=== PATIENT | female | born 1965 | race Caucasian/White ===

== ENCOUNTER 2020-02-14 17:30 | Emergency (ER) | payer SELFPAY ==
[~2020-02-14] VITALS: Ht 162.6 cm; Wt 60.0 kg
--- NOTE | 2020-02-14 18:02 | PHYS DOC ---
Past Medical History Past Medical History: Asthma, COPD Additional Past Medical Histor: emphysema Past Surgical History: Smoking Status: Current Every Day Smoker Alcohol Use: None Adult General Chief Complaint Chief Complaint: SHORTNESS OF BREATH HPI HPI 54 yo female with history of COPD/Emphysema presents to the ER with complaints of SOB. Patient was seen and tested by her PCP 2 weeks ago with a negative test however continues to have similar symptoms. Patient has SOB/cough, no chest pain, nausea or vomiting. Patient states nothing makes symptoms worse, nothing makes symptoms better. She is afebrile at this time. Saturations currently 98% on RA Review of Systems Review of Systems Constitutional: Denies fever or chills [] Respiratory: + cough/SOB Cardiovascular: No additional information not addressed in HPI [] GI: Denies abdominal pain, nausea, vomiting, bloody stools or diarrhea [] Integument: Denies rash or skin lesions [] Neurologic: Denies headache, focal weakness or sensory changes [] All other systems were reviewed and found to be within normal limits, except as documented in this note. Physical Exam Physical Exam Constitutional: Well developed, well nourished, no acute distress, non-toxic appearance. [] Cardiovascular:Heart rate regular rhythm, no murmur [] Lungs & Thorax: Bilateral breath sounds clear to auscultation [] Abdomen: Bowel sounds normal, soft, no tenderness, no masses, no pulsatile masses. [] Skin: Warm, dry, no erythema, no rash. [] Extremities: No tenderness, no edema. [] Neurologic: Alert and oriented X 3, no focal deficits noted. [] Psychologic: Affect normal, judgement normal, mood normal. [] Current Patient Data Vital Signs Vital Signs Date Time Temp Pulse Resp B/P (MAP) Pulse Ox O2 Delivery O2 Flow Rate FiO2 02/14/20 17:47 98.3 85 20 117/66 (83) 98 Room Air 98.3 Lab Values Laboratory Tests Test 02/14/20 18:00 02/14/20 18:10 White Blood Count 6.1 x10^3/uL (4.0-11.0) Red Blood Count 3.74 x10^6/uL (3.50-5.40) Hemoglobin 12.4 g/dL (12.0-15.5) Hematocrit 36.7 % (36.0-47.0) Mean Corpuscular Volume 98 fL (79-100) Mean Corpuscular Hemoglobin 33 pg (25-35) Mean Corpuscular Hemoglobin Concent 34 g/dL (31-37) Red Cell Distribution Width 14.8 % (11.5-14.5) H Platelet Count 283 x10^3/uL (140-400) Neutrophils (%) (Auto) 63 % (31-73) Lymphocytes (%) (Auto) 27 % (24-48) Monocytes (%) (Auto) 8 % (0-9) Eosinophils (%) (Auto) 1 % (0-3) Basophils (%) (Auto) 1 % (0-3) Neutrophils # (Auto) 3.8 x10^3/uL (1.8-7.7) Lymphocytes # (Auto) 1.6 x10^3/uL (1.0-4.8) Monocytes # (Auto) 0.5 x10^3/uL (0.0-1.1) Eosinophils # (Auto) 0.1 x10^3/uL (0.0-0.7) Basophils # (Auto) 0.0 x10^3/uL (0.0-0.2) Sodium Level 137 mmol/L (136-145) Potassium Level 4.3 mmol/L (3.5-5.1) Chloride Level 102 mmol/L (98-107) Carbon Dioxide Level 29 mmol/L (21-32) Anion Gap 6 (6-14) Blood Urea Nitrogen 16 mg/dL (7-20) Creatinine 0.8 mg/dL (0.6-1.0) Estimated GFR (Cockcroft-Gault) 74.7 BUN/Creatinine Ratio 20 (6-20) Glucose Level 85 mg/dL (70-99) Lactic Acid Level 0.6 mmol/L (0.4-2.0) Calcium Level 8.1 mg/dL (8.5-10.1) L Total Bilirubin 0.2 mg/dL (0.2-1.0) Aspartate Amino Transferase (AST) 11 U/L (15-37) L Alanine Aminotransferase (ALT) 19 U/L (14-59) Alkaline Phosphatase 50 U/L (46-116) IA-Nwf-X-Type Natriuretic Peptide 171 pg/mL (0-124) H Total Protein 6.2 g/dL (6.4-8.2) L Albumin 3.5 g/dL (3.4-5.0) Albumin/Globulin Ratio 1.3 (1.0-1.7) Influenza Type A Antigen Negative (NEGATIVE) Influenza Type B Antigen Negative (NEGATIVE) Laboratory Tests 02/14/20 18:00 Laboratory Tests 02/14/20 18:00 EKG EKG [] Radiology/Procedures Radiology/Procedures [facility] [address] [place] [address] IMAGING REPORT Signed PATIENT: ZENOBIA LEAVITT ACCOUNT: [id number] : 1965 LOCATION: ER AGE: 54 SEX: F EXAM STATUS: REG ER ORD. PHYSICIAN: JULIANNE ODELL DO REASON: SOB PROCEDURE: CHEST AP ONLY Single view chest dated 02/14/2020: No comparison available. Clinical Indication: Shortness of breath. Findings: Single upright portable exam of the chest was performed. Heart size and mediastinal contours are within normal limits given technique. The lungs are clear without evidence of focal consolidation. Vascular interstitium is within normal limits. No pleural effusion or pneumothorax. Impression:: No acute radiographic abnormality. Electronically signed by: Jaun Camejo MD (02/14/2020 6:42 PM) [id number] DICTATED and SIGNED BY: JAUN CAMEJO MD DATE: 02/14/20 1842 [] Course & Med Decision Making Course & Med Decision Making Pertinent Labs and Imaging studies reviewed. (See chart for details) []54 yo female with history of COPD/Emphysema presents to the ER with complaints of SOB. Patient was seen and tested by her PCP 2 weeks ago with a negative test however continues to have similar symptoms. Patient has SOB/cough, no chest pain, nausea or vomiting. Patient states nothing makes symptoms worse, nothing makes symptoms better. She is afebrile at this time. Laboratory studies and imaging reviewed No evidence of acute process identified No evidence of sepsis appreciated Recommend discharge home and follow-up with primary care physician Reji Disclaimer Reji Disclaimer This electronic medical record was generated, in whole or in part, using a voice recognition dictation system. Departure Departure Impression: Primary Impression: Dyspnea Disposition: 01 HOME, SELF-CARE Condition: STABLE Referrals: NO PCP (PCP) Patient Instructions: Shortness of Breath, [id number] Additional Instructions: Recommend follow up with PCP as scheduled No acute findings on CXR Labs normal, no evidence of sepsis appreciated Tylenol as needed for fever Problem Qualifiers Primary Impression: Dyspnea Dyspnea type: unspecified Qualified Codes: R06.00 - Dyspnea, unspecified MERLIN SWANN MD Feb 14, 2020 18:02
[2020-02-14 18:23] LABS: BASO % 1 % (0-3); EOS # 0.1 x10^3/uL (0.0-0.7); EOS % 1 % (0-3); HEMATOCRIT 36.7 % (36.0-47.0); HEMOGLOBIN 12.4 g/dL (12.0-15.5); LYMPH # 1.6 x10^3/uL (1.0-4.8); LYMPH % 27 % (24-48); MEAN CORPUSCULAR HEMOGLOBIN 33 pg (25-35); MEAN CORPUSCULAR HGB CONC 34 g/dL (31-37); MEAN CORPUSCULAR VOLUME 98 fL (79-100); MONO # 0.5 x10^3/uL (0.0-1.1); MONO % 8 % (0-9); NEUT # 3.8 x10^3/uL (1.8-7.7); NEUT % 63 % (31-73); PLATELET COUNT 283 x10^3/uL (140-400); RED BLOOD COUNT 3.74 x10^6/uL (3.50-5.40); RED CELL DISTRIBUTION WIDTH 14.8 % (11.5-14.5); WHITE BLOOD COUNT 6.1 x10^3/uL (4.0-11.0)
[2020-02-14 18:34] LABS: CALCIUM 8.1 mg/dL (8.5-10.1); CREATININE 0.8 mg/dL (0.6-1.0); GFR 74.7; POTASSIUM 4.3 mmol/L (3.5-5.1)
[2020-02-14 18:40] LABS: ALBUMIN 3.5 g/dL (3.4-5.0); ALBUMIN/GLOBULIN RATIO 1.3 (1.0-1.7); TOTAL BILIRUBIN 0.2 mg/dL (0.2-1.0); TOTAL PROTEIN 6.2 g/dL (6.4-8.2)
[2020-02-14 18:43] LABS: INFLUENZA A PATIENT NEGATIVE (NEGATIVE); INFLUENZA B PATIENT NEGATIVE (NEGATIVE)
--- NOTE | 2020-02-14 18:45 | RAD ---
Single view chest dated 02/14/2020: No comparison available. Clinical Indication: Shortness of breath. Findings: Single upright portable exam of the chest was performed. Heart size and mediastinal contours are within normal limits given technique. The lungs are clear without evidence of focal consolidation. Vascular interstitium is within normal limits. No pleural effusion or pneumothorax. Impression:: No acute radiographic abnormality. Electronically signed by: Jaun Camejo MD (02/14/2020 6:42 PM) [id number]
[2020-02-14 19:40] VITALS: BP 132/75
== END 2020-02-14 19:41 | disposition home or self-care (01) ==
LOC: ER 17:30
DX: R06.00 Dyspnea, unspecified (principal); R06.02 Shortness of breath; R05 Cough; J44.9 Chronic obstructive pulmonary disease, unspecified; F17.200 Nicotine dependence, unspecified, uncomplicated; Z98.890 Other specified postprocedural states
CPT/HCPCS: 36415; 71045; 80053; 83605; 83880; 85025; 87804; 99284

== ENCOUNTER 2020-12-27 12:11 | Emergency (ER) | payer SELFPAY ==
[~2020-12-27] VITALS: Ht 162.6 cm; Wt 57.2 kg
[2020-12-27] MEDS ORDERED: DEXAMETHASONE SOD PHOS 20 MG/5 ML VIAL. IV ONE (12:45)
[2020-12-27 12:53] LABS: BASO # 0.1 x10^3/uL (0.0-0.2); BASO % 1 % (0-3); EOS # 0.1 x10^3/uL (0.0-0.7); EOS % 1 % (0-3); HEMATOCRIT 40.6 % (36.0-47.0); HEMOGLOBIN 13.4 g/dL (12.0-15.5); LYMPH # 1.5 x10^3/uL (1.0-4.8); LYMPH % 17 % (24-48); MEAN CORPUSCULAR HEMOGLOBIN 33 pg (25-35); MEAN CORPUSCULAR HGB CONC 33 g/dL (31-37); MEAN CORPUSCULAR VOLUME 101 fL (79-100); MONO # 0.4 x10^3/uL (0.0-1.1); MONO % 4 % (0-9); NEUT % 77 % (31-73); PLATELET COUNT 316 x10^3/uL (140-400); RED BLOOD COUNT 4.02 x10^6/uL (3.50-5.40); RED CELL DISTRIBUTION WIDTH 13.9 % (11.5-14.5)
[2020-12-27 13:10] LABS: CALCIUM 8.8 mg/dL (8.5-10.1); CREATININE 0.8 mg/dL (0.6-1.0); GFR 74.5; POTASSIUM 4.2 mmol/L (3.5-5.1)
--- NOTE | 2020-12-27 13:15 | RAD ---
Single AP view of the chest. Comparison: 04/15/2020. Indication: Shortness of air Findings: Costophrenic angles are not included on the film. The heart is not enlarged. There is no pneumothora x or effusion. No air space or interstitial disease. Impression: 1. No acute cardiopulmonary process. Electronically signed by: Cornel Avalos MD (12/27/2020 1:12 PM) [id number]
[2020-12-27 13:18] LABS: ALBUMIN 4.2 g/dL (3.4-5.0); ALBUMIN/GLOBULIN RATIO 1.6 (1.0-1.7); MAGNESIUM 1.8 mg/dL (1.8-2.4); TOTAL BILIRUBIN 0.3 mg/dL (0.2-1.0); TOTAL PROTEIN 6.9 g/dL (6.4-8.2)
[2020-12-27 14:46] VITALS: BP 119/60
--- NOTE | 2020-12-27 15:16 | PHYS DOC ---
Past Medical History Past Medical History: Asthma, COPD, Depression Additional Past Medical Histor: emphysema, STOMACH ULCER Past Surgical History: , Hysterectomy Smoking Status: Current Every Day Smoker Alcohol Use: Occasionally General Adult EDM: Chief Complaint: SHORTNESS OF BREATH HPI: HPI: Patient is a 55 year old female with history of anxiety, depression, asthma, COPD, emphysema, current smoker, stomach ulcers, who presents to the ED today with multiple complaints. Patient is complaining of a productive cough, shortness of breath, nasal congestion, sore throat symptoms for 2 weeks. Patient states she has been seen by her PCP. She states she was diagnosed with a sinus infection 2 weeks ago and treated with antibiotics that begin with an aide. She states she does not know the name of the medicine. She states later she was diagnosed with bronchitis. She states her symptoms have been going on for too long so she came to the ED today because the doctor's office requested her to come to the ED. She is restless. Walking around the room. Sometimes hard to redirect. On asking her what medicines she takes at home, she states she does not know and we can call her on doctor's office and find out for symptoms she does not know. Review of Systems: Review of Systems: Constitutional: Denies fever or chills. [] Eyes: Denies change in visual acuity. [] HENT: Reports nasal congestion, sorethroat Respiratory: Reports cough and shortness of breath. [] Cardiovascular: Denies chest pain or edema. [] GI: Denies abdominal pain, nausea, vomiting, bloody stools or diarrhea. [] : Denies dysuria. [] Musculoskeletal: Denies back pain or joint pain. [] Integument: Denies rash. [] Neurologic: Denies headache, focal weakness or sensory changes. [] Psychiatric: Appears anxious Heart Score: Risk Factors: Risk Factors: DM, Current or recent (<one month) smoker, HTN, HLP, family history of CAD, obesity. Risk Scores: Score 0 - 3: 2.5% MACE over next 6 weeks - Discharge Home Score 4 - 6: 20.3% MACE over next 6 weeks - Admit for Clinical Observation Score 7 - 10: 72.7% MACE over next 6 weeks - Early Invasive Strategies Current Medications: Current Medications Medications (Trade) Dose Ordered Sig/Jeremy Start Time Stop Time Status Last Admin Dose Admin Dexamethasone Sodium Phosphate (Decadron) 10 mg 1X ONCE 12/27/20 12:45 12/27/20 12:46 DC 12/27/20 14:42 10 MG Allergies: Allergies: Allergies Coded Allergies Type Severity Reaction Last Updated Verified dimenhydrinate Allergy Unknown 12/27/20 Yes Physical Exam: PE: Constitutional: Well developed, well nourished, no acute distress, non-toxic appearance. [] HENT: Normocephalic, atraumatic, bilateral external ears normal, oropharynx moist, no oral exudates, nose normal. [] Ear exam not done patient eloped when i went to get a working otoscope Eyes: PERRLA, EOMI, conjunctiva normal, no discharge. [] Neck: Normal range of motion, no tenderness, supple, no stridor. [] Cardiovascular:Heart rate regular rhythm, no murmur [] Lungs & Thorax: Bilateral breath sounds clear to auscultation [] Abdomen: Bowel sounds normal, soft, no tenderness, no masses, no pulsatile masses. [] Skin: Warm, dry, no erythema, no rash. [] Back: No tenderness, no CVA tenderness. [] Extremities: No tenderness, no cyanosis, no clubbing, ROM intact, no edema. [] Neurologic: Alert and oriented X 3, normal motor function, normal sensory function, no focal deficits noted. [] Psychologic: Very anxious, pacing around the room on arrival Current Patient Data: Labs: Laboratory Tests Test 12/27/20 12:29 White Blood Count 9.0 x10^3/uL (4.0-11.0) Red Blood Count 4.02 x10^6/uL (3.50-5.40) Hemoglobin 13.4 g/dL (12.0-15.5) Hematocrit 40.6 % (36.0-47.0) Mean Corpuscular Volume 101 fL (79-100) H Mean Corpuscular Hemoglobin 33 pg (25-35) Mean Corpuscular Hemoglobin Concent 33 g/dL (31-37) Red Cell Distribution Width 13.9 % (11.5-14.5) Platelet Count 316 x10^3/uL (140-400) Neutrophils (%) (Auto) 77 % (31-73) H Lymphocytes (%) (Auto) 17 % (24-48) L Monocytes (%) (Auto) 4 % (0-9) Eosinophils (%) (Auto) 1 % (0-3) Basophils (%) (Auto) 1 % (0-3) Neutrophils # (Auto) 7.0 x10^3/uL (1.8-7.7) Lymphocytes # (Auto) 1.5 x10^3/uL (1.0-4.8) Monocytes # (Auto) 0.4 x10^3/uL (0.0-1.1) Eosinophils # (Auto) 0.1 x10^3/uL (0.0-0.7) Basophils # (Auto) 0.1 x10^3/uL (0.0-0.2) Sodium Level 138 mmol/L (136-145) Potassium Level 4.2 mmol/L (3.5-5.1) Chloride Level 101 mmol/L (98-107) Carbon Dioxide Level 29 mmol/L (21-32) Anion Gap 8 (6-14) Blood Urea Nitrogen 12 mg/dL (7-20) Creatinine 0.8 mg/dL (0.6-1.0) Estimated GFR (Cockcroft-Gault) 74.5 BUN/Creatinine Ratio 15 (6-20) Glucose Level 81 mg/dL (70-99) Lactic Acid Level 0.6 mmol/L (0.4-2.0) Calcium Level 8.8 mg/dL (8.5-10.1) Magnesium Level 1.8 mg/dL (1.8-2.4) Total Bilirubin 0.3 mg/dL (0.2-1.0) Aspartate Amino Transferase (AST) 13 U/L (15-37) L Alanine Aminotransferase (ALT) 18 U/L (14-59) Alkaline Phosphatase 57 U/L (46-116) Troponin I Quantitative < 0.017 ng/mL (0.000-0.055) RP-Iti-D-Type Natriuretic Peptide 77 pg/mL (0-124) Total Protein 6.9 g/dL (6.4-8.2) Albumin 4.2 g/dL (3.4-5.0) Albumin/Globulin Ratio 1.6 (1.0-1.7) Procalcitonin < 0.10 ng/mL (0.00-0.10) Thyroid Stimulating Hormone (TSH) 0.846 uIU/mL (0.358-3.74) Laboratory Tests 12/27/20 12:29 Laboratory Tests 12/27/20 12:29 Vital Signs: Vital Signs Date Time Temp Pulse Resp B/P (MAP) Pulse Ox O2 Delivery O2 Flow Rate FiO2 12/27/20 12:15 98.6 92 22 115/60 (78) 96 Room Air 98.6 EKG: EKG: EKG not donoe patient eloped[] Radiology/Procedures: Radiology/Procedures: []PROCEDURE: PORTABLE CHEST 1V Single AP view of the chest. Comparison: 04/15/2020. Indication: Shortness of air Findings: Costophrenic angles are not included on the film. The heart is not enlarged. There is no pneumothorax or effusion. No air space or interstitial disease. Impression: 1. No acute cardiopulmonary process. Electronically signed by: Cornel Hightower MD (12/27/2020 1:12 PM) [id number] DICTATED and SIGNED BY: CORNEL HIGHTOWER MD DATE: 12/27/20 [id number] 0 Course & Med Decision Making: Course & Med Decision Making Pertinent Labs and Imaging studies reviewed. (See chart for details) This is a 55-year-old female patient presenting to the ED today with complaints of cough, shortness of breath, nasal congestion, sore throat, symptoms for 2 weeks. Reports being diagnosed with a sinus infection and treated on unknown antibiotics. This happened 2 weeks ago. She also reports being diagnosed with bronchitis after the sinus infection. She states she was sent to the ED today by the PCP. Patient arrives in the ED very anxious. Pacing around the room at times hard to redirect. Vitals on arrival temperature 98.6, heart rate 92, respiration 22 on room air, O2 sats 96% on room air, blood pressure 115/60 Chest x-ray is negative for any acute findings, CBC CMP with no acute findings, lactic is normal. Procalcitonin is normal. RN informed me he went to give patient her medicines and she was on the phone so he left. I went to patient's room to give her results and see as if i can do throat swab for strep as well as throat exam. Found patient all dressed in her purse digging for her phone, she had removed her hospital gown and monitor and O2 sats and threw them on the floor. I asked patient if she intends to stay in the ED so we can provide her the care she needs. She started saying she has an infection and we need to give antibiotics right now. Informed patient from her lab work there is no active infection but needs to be treated with antibiotics that will of the blood to do another physical exam and check her ears and throat and swab her for strep. She then started stating that she has medicines already ordered by her doctor at the pharmacy and she wants to talk to the to see if he is picking up the medicines. She got on the phone started yelling at the , I walked out of the room. [id number] patient akila. Reji Disclaimer: Reji Disclaimer: This electronic medical record was generated, in whole or in part, using a voice recognition dictation system. Departure Departure Impression: Primary Impression: Person under investigation for COVID-19 Additional Impressions: Cough Shortness of breath URI (upper respiratory infection) Qualified Codes: J06.9 - Acute upper respiratory infection, unspecified Disposition: 07 AMA/ELOPED/LWBS Condition: STABLE Referrals: IVA CARTER MD (PCP) MARLENY HOLGUIN APRN Dec 27, 2020 15:16
--- NOTE | 2020-12-28 09:20 | NUR ---
IP: Attempted to contact pt concerning COVID results. Phone number on file is a wrong number.
== END 2020-12-27 15:10 | disposition left against medical advice (07) ==
LOC: ER 12:11
DX: J06.9 Acute upper respiratory infection, unspecified (principal); Z20.822 Contact with and (suspected) exposure to COVID-19; J44.9 Chronic obstructive pulmonary disease, unspecified; F17.200 Nicotine dependence, unspecified, uncomplicated; Z88.5 Allergy status to narcotic agent
CPT/HCPCS: 36415; 71045; 80053; 83605; 83735; 83880; 84145; 84443; 84484; 85025; 87040; 96374; 99285; C9803; J1100; U0003